=== PATIENT | female | born 1985 | race Caucasian/White ===

== ENCOUNTER 2022-01-08 23:26 | Emergency (ER) | payer BC, MEDICAID, SELFPAY ==
[2022-01-08 23:33] VITALS: BP 122/89; PULSE 83; RESP 18; TEMP 36.6; O2SAT 100; BMI 26.6
--- NOTE | 2022-01-08 23:50 | PC.NURSE ---
patient arrival with known STD exposure, called her and told her he tested positive but not for what. reprots discharge with foul odor and pelvic pain.
--- NOTE | 2022-01-09 00:11 | ED_ITS ---
HPI - Female Genitourinary General: Chief complaint: Urogenital-Female Stated complaint: ABDOMEN PAIN, VAG DISCHARGE Time Seen by Provider: 01/08/22 23:49 History of Present Illness: Patient states that her cheated on her and that he got tested and was positive for some S TD. And he will tell her what he has but told her she needed come the ER and get treated. Patient says she has had vaginal discharge on and off for a while. She has had a lot of cramping at times. Associated symptoms: Reports vaginal discharge (STD exposure); Deny abdominal pain, headache(s), nausea or vaginal bleeding Review of Systems Const: Denies: fever(s), chills or body aches Eyes: Denies: eye discomfort ENMT: Denies: throat pain Card: Denies: chest pain Resp: Denies: dyspnea GI: Denies: abdominal pain, nausea or vomiting : Reports: vaginal discharge (STD exposure) Skin/Breast: Denies: rash Neuro: Denies: headache(s) Psych: Denies: depression or suicidal ideation Physical Exam Const: COMMON NORMALS: no acute distress, patient oriented x3 and alert HENMT: COMMON NORMALS: normocephalic and external ears normal HEAD & SCALP: normocephalic EXTERNAL EAR: Yes external ears normal Eye: COMMON NORMALS: EOMs intact bilaterally Neck/C-Spine: COMMON NORMALS: no JVD Resp: COMMON NORMALS: normal respiratory effort and No use of accessory mu scles Cardio: COMMON NORMALS: no JVD GI: INSPECTION: Yes normal to inspection : SPECULUM EXAM - VAGINA: No vaginal bleeding, No tenderness and Yes Vaginal discharge present Vaginal discharge present: white (Slight) BIMANUAL EXAM - VAGINA & UTERUS: No cervical motion tenderness and No Uterine tenderness OB/EXTERNAL & SPECULUM: No vaginal bleeding Extremity: COMMON NORMALS: normal to inspection and full ROM Neuro: COMMON NORMALS: patient oriented x3 SENSORIUM/ORIENTATION: Yes alert Psych: COMMON NORMALS: mental status grossly normal Skin: COMMON NORMALS: no rashes or lesions noted GENERAL SKIN EXAM: no rashes or lesions noted Course Vital Signs: Vital signs: Vital Signs Temperature 97.9 F 01/08/22 23:33 Pulse Rate 83 01/08/22 23:33 Respiratory Rate 18 01/08/22 23:33 Blood Pressure 122/89 01/08/22 23:33 Pulse Oximetry 100 01/08/22 23:33 MDM - Female Medical Decision Making STD exposure and positive clue cells on wet prep. Patient covered for most common STDs. Awaiting other test. Patient follow-up primary care provider. Patient will call back for rest lab results tomorrow or Monday. Lab Data Laboratory Results Urine Color Yellow (Yellow) 01/09/22 00:00 Urine Appearance Clear (CLEAR) 01/09/22 00:00 Urine pH 8 (5-7) H 01/09/22 00:00 Ur Specific [place] 1.010 (1.005-1.030) 01/09/22 00:00 Urine Protein Neg (Negative) 01/09/22 00:00 Urine Glucose (UA) Norm (Normal) 01/09/22 00:00 Urine Ketones Negative (Negative) 01/09/22 00:00 Urine Blood Neg (Negative) 01/09/22 00:00 Urine Nitrate Negative (Negative) 01/09/22 00:00 Urine Bilirubin Neg (Negative) 01/09/22 00:00 Prot Sulfosalicylic Acd Negative (Negative) 01/09/22 00:00 Urine Urobilinogen Norm mg/dL (Negative) 01/09/22 00:00 Ur Leukocyte Esterase Negative (Negative) 01/09/22 00:00 Discharge Plan Discharge Patient Disposition: Home Clinical Impression: Bacterial vaginosis, Exposure to sexually transmitted disease (STD) Condition: Stable Discharge Orders: Discharge ED (Routine); Ordered 01/09/22 Ordered By: Franck Shah Discharge Diet: Usual diet Discharge Activity: Increase activity as tolerated Patient Instructions: Bacterial Vaginosis (ED) Activity Restrictions/Additional Instructions: Call the hospital tomorrow or on Monday to get the rest your lab test results. Follow primary care provider. Coding Level of Care Code ED [employer] for [place] Fwd Exam Comprehensive
[2022-01-09 00:18] LABS: Add Urine Microscopic? NO; Charge for UA Resulting for Rev
[2022-01-09 00:22] LABS: Bilirubin Urine Neg (Negative); Blood Urine Neg (Negative); Glucose Urine UA Norm (Normal); Ketones Urine Negative (Negative); Leukocyte Esterase Urine Negative (Negative); Nitrate Urine Negative (Negative); Protein Urine Neg (Negative); Sulfosalicylic Acid Urine Negative (Negative); Urine Appearance Clear (CLEAR); Urine Color Yellow (Yellow); Urobilinogen Urine Norm (Negative); pH Urine 8 (5-7)
[2022-01-09] MEDS: azithromycin 250 mg Tablet 1000 MG PO (00:24)
[2022-01-09 00:38] LABS: HIV 1 & 2 Antibody Non-Reactive (Non-Reactiv); HIV 1 & 2 Antigen Non-Reactive (Non-Reactiv)
[2022-01-09 00:41] LABS: Hepatitis A Antibody IgM Non-Reactive (Nonreactive); Hepatitis B Core IgM Non-Reactive (Nonreactive); Hepatitis B Surface Antigen Non-Reactive (Nonreactive); Hepatitis C Virus Antibody Non-Reactive (Nonreactive); Rapid Plasma Reagin Syphilis Nonreactive (Nonreactive)
[2022-01-09] MEDS: metroNIDAZOLE 500 MG Tablet 2000 MG PO (00:42)
[2022-01-09] MEDS: ondansetron 4 MG Tablet PO (00:42)
== END 2022-01-09 00:46 | disposition home or self-care (01) ==
PROVIDERS: Emergency Provider Nurse Practitioner Family
DX: Z20.2 Contact with and (suspected) exposure to infections with a predominantly sexual mode of transmission (principal); N76.0 Acute vaginitis
CPT/HCPCS: 80074; 81003; 86592; 87210; 87491; 87591; 87661; 87806; 96372; 99283; E0352; J0696; Q0144; Q0162

== ENCOUNTER 2022-01-23 19:23 | Emergency (ER) | payer BC, MEDICAID, SELFPAY ==
[2022-01-23 19:25] VITALS: BP 115/91; PULSE 70; RESP 15; TEMP 36.8; O2SAT 99; BMI 26.6
--- NOTE | 2022-01-23 19:43 | CTR_ITS ---
PROCEDURE INFORMATION: Exam: CT Abdomen And Pelvis With Contrast Exam date and time: 01/23/2022 7:43 PM Age: 36 years old Clinical indication: Prior surgery; Surgery date: 6+ months; Surgery type: Appy, hernia; Patient HX: C/O L sided abd pain w bloating/distention; Additional info: Left abdominal pain TECHNIQUE: Imaging protocol: Computed tomography of the abdomen and pelvis with contrast. Radiation optimization: All CT scans at this facility use at least one of these dose optimization techniques: automated exposure control; mA and/or kV adjustment per patient size (includes targeted exams where dose is matched to clinical indication); or iterative reconstruction. Contrast material: OMNI 300; Contrast volume: 95 ml; Contrast route: INTRAVENOUS (IV); COMPARISON: No relevant prior studies available. RADIATION DOSE METRICS: Total DLP (mGy-cm): 1575.97 FINDINGS: Liver: Multiple liver lesions which demonstrate peripheral nodular enhancement and central hypo attenuation consistent with multiple benign hemangiomas. Largest lesion in the a [place] dome measures about 2.2 cm x 2.3 cm. Gallbladder and bile ducts: Contracted gallbladder. Unremarkable biliary system. Pancreas: Normal. No ductal dilation. Spleen: Normal. No splenomegaly. Adrenal glands: Normal. No mass. Kidneys and ureters: Small simple right renal cortical cyst. Negative hydronephrosis. Negative for renal stones. Stomach and bowel: Unremarkable. No obstruction. No mucosal thickening. Appendix: Appendectomy. Intraperitoneal space: Unremarkable. No free air. No significant fluid collection. Vasculature: Unremarkable. No abdominal aortic aneurysm. Lymph nodes: Unremarkable. No enlarged lymph nodes. Urinary bladder: Unremarkable as visualized. Reproductive: Unremarkable as visualized. Bones/joints: Unremarkable. No acute fracture. Soft tissues: Unremarkable. CT/CT abdomen pelvis w con* [id number] IMPRESSION: Negative CT abdomen and pelvis. No acute abnormality identified. COMMENTS: Consistent with the [employer]'s Incidental Findings Committee white paper (J Am Jerald Radiol 2018): Any incidental renal lesion less than 1 cm or classified as too small to characterize, or any incidental cystic renal lesion characterized as simple-appearing, is likely benign. No follow-up imaging is recommended for these lesions per consensus recommendations based on imaging criteria.
--- NOTE | 2022-01-23 19:44 | ED_ITS ---
HPI - Abdominal Pain General: Chief Complaint: Abdominal Pain Stated Complaint: ABD PAIN Time Seen by Provider: 01/23/22 19:25 Source: patient Mode of arrival: EMS History of Present Illness: 36-year-old female with a history of alcohol use. She is in a treatment program currently. She notes the past 3 days she has had belly distention, bloating, mainly left-sided belly pain, and increased bowel sounds. She denies diarrhea. She vomited one time today. No fever. She notes the belly sounds are loud enough to be disruptive in class and rehab. MD elicited complaint: abdominal pain Pertinent past history: other Onset (ago): day(s) Pain Consistency: constant Location: LUQ Severity: moderate Quality: cramping, aching and fullness Radiation: none Migration to: no migration Relieving factors: nothing Associated Symptoms: Reports bloating, GI cramping, nausea, poor appetite and vomiting; Denies anorexia, belching, change in stool character, chills, coffee ground emesis, constipation, diarrhea, fever(s), hematochezia and melena Review of Systems Const: Denies: fever(s) or chills Card: Denies: chest pain Resp: Denies: dyspnea or productive cough GI: Reports: nausea, vomiting, bloating and GI cramping; Denies: coffee ground emesis, diarrhea, constipation, belching, change in stool character, hematochezia or melena [facility] ED PFSH: Medical History (Updated 01/23/22 @ 21:34 by Juanito Martinez DO) Alcohol use disorder Surgical History (Updated 01/23/22 @ 19:48 by Juanito Martinez DO) History of appendectomy History of hernia surgery Physical Exam Const: GENERAL APPEARANCE: cooperative; not frail appearing HENMT: COMMON NORMALS: normocephalic, atraumatic and Normal external nose present HEAD & SCALP: normocephalic and atraumatic FACE & SINUS: normal facial exam NOSE: Normal external nose present Eye: COMMON NORMALS: Equal, round and reactive pupils present and EOMs intact bilaterally PUPIL: Yes Equal, round and reactive pupils present Chest: COMMONS NORMALS: normal inspection of the chest Resp: COMMON NORMALS: normal respiratory effort, No use of accessory muscles and clear to auscultation bilaterally AUSCULTATION: clear to auscultation bilaterally Cardio: COMMON NORMALS: regular rate and regular rhythm RATE: regular rate RHYTHM: regular rhythm GI: COMMON NORMALS: Soft to palpation INSPECTION: Yes abdominal distension PALPATION: Yes Soft to palpation, Yes Tenderness to palpation present (GI) Details: LLQ and LUQ and Yes Guarding due to palpation present (GI) Extremity: COMMON NORMALS: no pedal edema Neuro: LUIS COMA SCALE: document GCS findings [place] coma scale eye opening: Spontaneous [place] coma scale verbal response: Orientated Luis coma scale motor response: Obey commands [place] coma scale total score: 15 Course Vital Signs: Vital signs: Vital Signs Temperature 98.2 F 01/23/22 19:25 Pulse Rate 70 01/23/22 19:25 Respiratory Rate 15 01/23/22 19:25 Blood Pressure 115/91 01/23/22 19:25 Pulse Oximetry 99 01/23/22 19:25 MDM - Abdominal Pain Medical Decision Making Blood cell count 10.4. Hemoglobin 13. BMP is normal. INR ran due to history of alcohol use is 1.18. Albumin is normal. Lipase is normal. CT of the belly is negative for acute findings. It does show increased stool and gas burden likely a cause of her distention and pain. With these findings, would consider bowel prep to eliminate extra stool and gas over the next 12 to 24 hours. Lab Data : 01/23/22 19:30 01/23/22 19:30 Labs/Radiology: Radiology Impressions Abdomen/Pelvis CT 01/23/22 19:43 IMPRESSION: Negative CT abdomen and pelvis. No acute abnormality identified. COMMENTS: Consistent with the [employer]'s Incidental Findings Committee white paper (J Am Jerald Radiol 2018): Any incidental renal lesion less than 1 cm or classified as too small to characterize, or any incidental cystic renal lesion characterized as simple-appearing, is likely benign. No follow-up imaging is recommended for these lesions per consensus recommendations based on imaging criteria. Laboratory Results WBC 10.4 10^3/uL (4.0-10.0) H 01/23/22 19:30 RBC 4.19 10^6/uL (4.1-5.3) 01/23/22 19:30 Hgb 13.0 g/dL (11.5-15.3) 01/23/22 19:30 Hct 39.9 % (37.0-47.0) 01/23/22: MCV 95.2 fl (81-99) 01/23/22: MCH 31.0 pg (28.0-34.0) 01/23/22 MCHC 32.6 g/dL (30.0-36.0) 01/23/22: RDW 12.7 % (12.1-15.1) 01/23/22 Plt Count 473 10^3/cmm (130-400) H 01/23/22: MPV 9.0 fL (7.4-10.4) 01/23/22: Neut % (Auto) 54.4 % 01/23/22: Lymph % (Auto) 33.1 % 01/23/22: Cassia % (Auto) 7.3 % 01/23/22 Eos % (Auto) 3.7 % 01/23/22 Baso % (Auto) 1.1 % 01/23/22 Neut # (Auto) 5.68 10^3/uL (1.8-7.7) 01/23/22: Lymph # (Auto) 3.5 10^3/uL (0.8-4.8) 01/23/22 Cassia # (Auto) 0.8 10^3/uL (0.2-0.9) 01/23/22 Eos # (Auto) 0.4 10^3/uL (0.0-0.8) 01/23/22 Baso # (Auto) 0.1 10^3/uL (0.0-0.1) 01/23/22 Nucleated RBC % (auto) 0 % 01/23/22 Nucleated RBCs # 0.0 /100WBC 01/23/22: PT 15.30 SECONDS (12.1-14.9) H 01/23/22: INR 1.18 (0.8-1.2) 01/23/22: Sodium 136 mmol/L (136-145) 01/23/22: Potassium 4.2 mmol/L (3.5-5.1) 03/13/22 19:30 Chloride 102 mmol/L (98-107) 01/23/22 19:30 Carbon Dioxide 26 mmol/L (22-29) 01/23/22 19:30 Anion Gap 12.2 (5-19) 01/23/22 19:30 BUN 7 mg/dL (6-20) 01/23/22 19:30 Creatinine 0.8 mg/dL (0.5-0.9) 01/23/22 19:30 GFR Calculation 81.2 mL/min (90-130) L 01/23/22 19: Glucose 71 mg/dL (65-115) 01/23/22: Calculated Osmolality 278 mOsm/kg (285-295) L 01/23/22: Calcium 8.6 mg/dL (8.5-10.5) 01/23/22: Total Bilirubin 0.2 mg/dL (0.15-1.2) 01/23/22:30 AST 10 U/L (0-32) 01/23/22: ALT 10 U/L (0-33) 01/23/22 19: Alkaline Phosphatase 59 IU/L (35-105) 01/23/22 19:30 C-Reactive Protein 3.0 mg/L (0.0-4.9) 01/23/22 19: Total Protein 6.7 g/dL (6.6-8.7) 01/23/22 19: Albumin 4.7 g/dL (3.5-5.2) 01/23/22 19:30 Globulin 2.0 g/dL (1.3-4.6) 01/23/22: Lipase 30 U/L (13-60) 01/23/22 19:30 HCG, Qual Negative (Negative) 01/23/22 19: Urine Color Yellow (Yellow) 01/23/22: Urine Appearance Sl hazy (CLEAR) 01/23/22: Urine pH 7 (5-7) 01/23/22: Ur Specific [place] 1.010 (1.005-1.030) 01/23/22: Urine Protein Neg (Negative) 01/23/22: Urine Glucose (UA) Norm (Normal) 01/23/22 Urine Ketones Negative (Negative) 01/23/22 19:57 Urine Blood Neg (Negative) 01/23/22 19:57 Urine Nitrate Negative (Negative) 01/23/22 19:57 Urine Bilirubin Neg (Negative) 01/23/22 19:57 Urine Urobilinogen Norm mg/dL (Negative) 01/23/22 19:57 Ur Leukocyte Esterase Trace (Negative) H 01/23/22 19:57 Urine RBC 0-4 /hpf (0-2) H 01/23/22 19:57 Urine WBC 10-15 /hpf (0-5) H 01/23/22 19:57 Ur Squamous Epith Cells 15-25 /hpf (0-5) H 01/23/22 19:57 Amorphous Sediment Not Reportable 01/23/22 19:57 Urine Bacteria 2+ /hpf (NONE) H 01/23/22 19:57 Discharge Plan Discharge Patient Disposition: Home Clinical Impression: Abdominal pain Condition: Stable Prescriptions: New Zofran 4 mg tablet 4 mg PO Q6H PRN (Reason: nausea and vomiting) Qty: 10 0RF Discharge Orders: Discharge ED (Routine); Ordered 01/23/22 Ordered By: Juanito Martinez Patient Instructions: Abdominal Pain (ED) Activity Restrictions/Additional Instructions: Take medication when you get back to your room. You should stay close to the bathroom, and potentially skip classes tomorrow for treatment of this condition. Return for fever greater than 100, vomiting liquids or medications despite treatment, any other concerning symptoms. Take the medication prescribed (Zofran) scheduled for the next 24 hours for nausea, then as needed. Coding Level of Care Code ED Wet Process [employer] Head for [place] Fwminal Exam Comprehensive
[2022-01-23 19:49] LABS: Basophils # 0.1 10^3/uL (0.0-0.1); Basophils % 1.1 %; Eosinophils # 0.4 10^3/uL (0.0-0.8); Eosinophils % 3.7 %; Hematocrit 39.9 % (37.0-47.0); Lymphocytes # 3.5 10^3/uL (0.8-4.8); Lymphocytes % 33.1 %; Mean Corpuscular HGB Conc 32.6 g/dL (30.0-36.0); Mean Corpuscular Volume 95.2 fl (81-99); Monocytes # 0.8 10^3/uL (0.2-0.9); Monocytes % 7.3 %; Neutrophils # 5.68 10^3/uL (1.8-7.7); Neutrophils % 54.4 %; Nucleated Red Blood Cells % 0 %; Platelet Count 473 10^3/cmm (130-400); Red Blood Count 4.19 10^6/uL (4.1-5.3); Red Cell Distribution Width 12.7 % (12.1-15.1); White Blood Count 10.4 10^3/uL (4.0-10.0)
[2022-01-23 19:55] LABS: INR 1.18 (0.8-1.2)
[2022-01-23 19:59] LABS: HCG, Serum Qual Negative (Negative)
[2022-01-23 20:02] LABS: Alanine Aminotransferase 10 U/L (0-33); Albumin Level 4.7 g/dL (3.5-5.2); Alkaline Phosphatase 59 IU/L (35-105); Anion Gap 12.2 (5-19); Aspartate Amino Transferase 10 U/L (0-32); Blood Urea Nitrogen 7 mg/dL (6-20); Calcium 8.6 mg/dL (8.5-10.5); Carbon Dioxide 26 mmol/L (22-29); Chloride 102 mmol/L (98-107); Glomerular Filtration Rate 81.2 mL/min (90-130); Glucose 71 mg/dL (65-115); Lipase 30 U/L (13-60); Osmolality Calculated 278 mOsm/kg (285-295); Potassium 4.2 mmol/L (3.5-5.1); Sodium 136 mmol/L (136-145); Total Bilirubin 0.2 mg/dL (0.15-1.2); Total Protein 6.7 g/dL (6.6-8.7)
[2022-01-23] MEDS: ketorolac 30 mg/mL INJ 15 MG IVP (20:02)
[2022-01-23] MEDS: ondansetron 2 mg/ML SDV 2 mL 4 MG IVP (20:03)
[2022-01-23 20:20] LABS: Add Urine Microscopic? YES; Bilirubin Urine Neg (Negative); Blood Urine Neg (Negative); Glucose Urine UA Norm (Normal); Ketones Urine Negative (Negative); Leukocyte Esterase Urine Trace (Negative); Nitrate Urine Negative (Negative); Protein Urine Neg (Negative); Urine Appearance SL Hazy (CLEAR); Urine Color Yellow (Yellow); Urobilinogen Urine Norm (Negative); pH Urine 7 (5-7)
[2022-01-23] MEDS: iohexol 300 mg/mL 100 mL Btl IV (20:22)
[2022-01-23 20:29] LABS: Add Urine Culture? No; Bacteria Urine 2+ /hpf; RBC Urine 0-4 /hpf (0-2); Squamous Epithelial Cell Urine 15-25 /hpf (0-5)
== END 2022-01-23 21:46 | disposition home or self-care (01) ==
PROVIDERS: Emergency Provider Emergency Medicine
DX: R10.9 Unspecified abdominal pain (principal)
CPT/HCPCS: 74177; 80053; 81001; 83690; 84703; 85025; 85610; 86140; 96374; 96375; 99283; J1885; J2405; Q9967